=== PATIENT | male | born 1940 | race Hispanic/Latino ===

== ENCOUNTER 2016-03-27 11:32 | Inpatient (IN) | payer OTHER ==
[2016-03-27] MEDS ORDERED: SUBLIMAZE ONE (11:50)
[2016-03-27] MEDS ORDERED: NACL 0.9% 1000 ML 1,000 ML ONE (11:51)
[2016-03-27] MEDS ORDERED: NACL 0.9% 1000 ML 1,000 ML IV ONE ×2 (11:55→12:02)
[2016-03-27] MEDS ORDERED: SUBLIMAZE IV ONE ×2 (11:55→12:02)
[2016-03-27] MEDS ORDERED: ZOFRAN ONE (12:05)
--- NOTE | 2016-03-27 12:06 | Emergency Department Report ---
HPI - General Chief Complaint: Fall Time Seen by Provider: 03/27/16 11:36 - HPI HPI: This is a 75-year-old male who presents to the emergency department by EMS from work with the complaint of a fall and left hip pain. 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 He is unsure exactly how he fell or if he landed on his left side, but he complains of left hip pain, and presents with a severely externally rotated left lower extremity. The patient has a history of hypertension, hypothyroidism, CABG in 2006. His primary care doctor and orthopedist are in [place]. He did not take anything and was not given anything for symptoms prior to presentation. Once the patient fell, he was unable to ambulate. ED Past Medical Hx - Past Medical History Previous Medical History?: Yes Hx Hypertension: Yes Additional medical history: high cholesterol, hypothyroidism - Surgical History Past Surgical History?: Yes Hx Open Heart Surgery: Yes (CABG 2006) Additional Surgical History: Shoulder surgery 2006 - Social History Smoking Status: Former Smoker Substance Use Type: None - Medications Home Medications: Home Medications Medication Instructions Recorded Confirmed Last Taken Type Aspirin [Aspirin BABY CHEW TAB] 81 mg PO QDAY 03/27/16 03/27/16 Unknown History AtorvaSTATin [Lipitor] 20 mg PO QHS 03/27/16 03/27/16 03/26/16 History Gabapentin [Neurontin] 300 mg PO DAILY 03/27/16 03/27/16 Unknown History Levothyroxine [Synthroid] 125 mcg PO QAM 03/27/16 03/27/16 03/27/16 History Metoprolol Tartrate [Lopressor] 25 mg PO BID 03/27/16 03/27/16 Unknown History Multivit-Min/FA/Lycopen/Lutein 1 each PO DAILY 03/27/16 03/27/16 Unknown History [Centrum Silver Tablet] Omeprazole 20 mg PO DAILY 03/27/16 03/27/16 Unknown History ED Review of Systems ROS: Stated complaint: FELL/LEFT HIP INJURY Other details as noted in HPI Comment: All other systems reviewed and negative Constitutional: denies: chills, fever Eyes: denies: eye pain, eye discharge, vision change ENT: denies: ear pain, throat pain Respiratory: denies: cough, shortness of breath, wheezing Cardiovascular: denies: chest pain, palpitations Gastrointestinal: denies: abdominal pain, nausea, diarrhea Genitourinary: denies: urgency, dysuria Musculoskeletal: arthralgia. denies: back pain Skin: denies: rash, lesions Neurological: denies: headache, weakness, paresthesias Physical Exam - Physical Exam Vital Signs: Vital Signs 03/27/16 11:39 Pulse Rate 58 L Respiratory 16 Rate Blood Pressure 115/56 O2 Sat by Pulse 97 Oximetry Physical Exam: GENERAL: The patient is well-developed well-nourished. HEENT: Normocephalic. Atraumatic. Extraocular motions are intact. Patient has moist mucous membranes. Pupils equal reactive to light bilaterally. NECK: Supple. Trachea is midline. CHEST/LUNGS: Clear to auscultation. There is no respiratory distress noted. HEART/CARDIOVASCULAR: Regular. There is no tachycardia. There is no gallop rub or murmur. ABDOMEN: Abdomen is soft, nontender. Patient has normal bowel sounds. There is no abdominal distention. SKIN: There is no rash. There is no edema. There is no diaphoresis. NEURO: The patient is awake, alert, and oriented. The patient is cooperative. The patient has no focal neurologic deficits. The patient has normal speech. MUSCULOSKELETAL: Patient has tenderness to palpation to the left hip. The left lower extremity is externally rotated. Patient is neurovascularly intact with good cap refill and distal pedal pulses intact at +2 over 4. ED Course Vital Signs 03/27/16 11:39 Pulse Rate 58 L Respiratory 16 Rate Blood Pressure 115/56 O2 Sat by Pulse 97 Oximetry - Consultations Consultation #1: X-ray shows a proximal femur fracture just below the intertrochanteric line. Orthopedists have been paged. 03/27/16 12:05 Consultation #2: Was able to speak with Dr. Jauregui, the orthopedist environmental health and safety leader, who has the patient could be admitted to the hospitalist service but they will fix the patient's femur tomorrow. Patient is to be nothing by mouth after midnight. He asks for no Lovenox or heparin until that time. 03/27/16 12:24 ED Medical Decision Making - Radiology Data Radiology results: image reviewed interpreted by me: X-ray of the left hip shows a proximal left femur fracture just inferior to the intertrochanteric line. - Medical Decision Making 75-year-old male presents to the emergency department after a fall with complaint of left hip pain and what appears to be some deformity with extreme external rotation. X-ray shows a femoral fracture, transversely, just inferior to the intertrochanteric line of the hip. Orthopedist has been contacted and is aware and will fix the hip tomorrow. Patient to be admitted to the hospitalist service. Accepted for admission by the hospitalist, Dr. Can. - Differential Diagnosis hip fracture, contusion, muscle strain, tendinitis Critical Care Time: No Critical care attestation.: If time is entered above; I have spent that time in minutes in the direct care of this critically ill patient, excluding procedure time. ED Disposition Clinical Impression: Hip pain, left Left femoral shaft fracture Qualifiers: Encounter type: initial encounter Fracture type: closed Fracture morphology: transverse Fracture alignment: displaced Qualified Code(s): S72.322A - Displaced transverse fracture of shaft of left femur, initial encounter for closed fracture Fall Qualifiers: Encounter type: initial encounter Qualified Code(s): W19.XXXA - Unspecified fall, initial encounter Disposition: OP ADMITTED IP TO THIS HOSP Is pt being admited?: Yes Condition: Stable Time of Disposition: 12:26
[2016-03-27] MEDS ORDERED: ZOFRAN IV ONE (12:20)
[2016-03-27 12:40] LABS: Basophils % (Auto) 0.7 % (0.0-1.8); Eosinophils % (Auto) 2.5 % (0.0-4.3); Hematocrit 39.2 % (35.5-45.6); Hemoglobin 13.2 gm/dl (11.8-15.2); Mean Corpuscular HGB Conc 34 % (32-34); Mean Corpuscular Hemoglobin 31 pg (28-32); Mean Corpuscular Volume 91 fl (84-94); Platelet Count 216 K/mm3 (140-440); Red Blood Count 4.31 M/mm3 (3.65-5.03); Red Cell Distribution Width 13.6 % (13.2-15.2); White Blood Count 8.5 K/mm3 (4.5-11.0)
[2016-03-27 12:52] LABS: INR 1.04 (0.87-1.13)
[2016-03-27] MEDS ORDERED: MORPHINE IV ONE (12:54)
[2016-03-27 13:01] LABS: Anion Gap 19 mmol/L; BUN/Creatinine Ratio 17.77; Blood Urea Nitrogen 16 mg/dL (9-20); Calcium 8.6 mg/dL (8.4-10.2); Carbon Dioxide 21 mmol/L (22-30); Chloride 107.7 mmol/L (98-107); Glucose 141 mg/dL (75-100); Potassium 4.1 mmol/L (3.6-5.0); Sodium 144 mmol/L (137-145)
[2016-03-27] MEDS ORDERED: PERCOCET 5/325 PO PRN (13:18)
[2016-03-27] MEDS ORDERED: TYLENOL PO PRN (13:18)
[2016-03-27] MEDS ORDERED: NACL 0.45% 1000 ML 1,000 ML IV SCH (13:18)
[2016-03-27] MEDS ORDERED: DULCOLAX PR PRN (13:18)
--- NOTE | 2016-03-27 13:24 | History and Physical Report ---
History of Present Illness Date of examination: 03/27/16 Date of admission: 03/27/16 Chief complaint: Pain in the left hip after a fall today History of present illness: Mr. 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 He was unable to get up. He had pain in the left hip. He denies any shortness of breath, dizziness or chest pain. He was taken to the emergency room and x-rays were done which showed a left femoral fracture. Dr. Jauregui was consulted from the emergency room and requested that a patient admitted to the hospitalist service for surgical repair in the morning. Past History Past Medical History: CAD (CABG), hypertension, other (hypothyroid) Past Surgical History: No surgical history, CABG (double bypass; RT shoulder sx ) Social history: full code. denies: smoking (stopped years ago), prescription drug abuse, IV drug use Family history: hypertension Medications and Allergies Allergies Allergy/AdvReac Type Severity Reaction Status Date / Time No Known Allergies Allergy Unverified 03/27/16 11:44 Home Medications Medication Instructions Recorded Confirmed Last Taken Type Aspirin [Aspirin BABY CHEW TAB] 81 mg PO QDAY 03/27/16 03/27/16 Unknown History AtorvaSTATin [Lipitor] 20 mg PO QHS 03/27/16 03/27/16 03/26/16 History Gabapentin [Neurontin] 300 mg PO DAILY 03/27/16 03/27/16 Unknown History Levothyroxine [Synthroid] 125 mcg PO QAM 03/27/16 03/27/16 03/27/16 History Metoprolol Tartrate [Lopressor] 25 mg PO BID 03/27/16 03/27/16 Unknown History Multivit-Min/FA/Lycopen/Lutein 1 each PO DAILY 03/27/16 03/27/16 Unknown History [Centrum Silver Tablet] Omeprazole 20 mg PO DAILY 03/27/16 03/27/16 Unknown History Active Meds: Active Medications Acetaminophen (Tylenol) 650 mg PO Q4H PRN PRN Reason: Pain MILD(1-3)/Fever >100.5/PAUL Atorvastatin Calcium (Lipitor) 20 mg PO QHS [facility] Bisacodyl (Dulcolax) 10 mg [place] QDAY PRN PRN Reason: Constipation unrelieved by MOM Gabapentin (Neurontin) 300 mg PO DAILY [facility] Sodium Chloride (Nacl 0.45% 1000 Ml) 1,000 mls @ 75 mls/hr IV DIRECT IFRAH Levothyroxine Sodium (Synthroid) 125 mcg PO QAM [facility] Metoprolol Tartrate (Lopressor) 25 mg PO BID [facility] Miscellaneous Medication (Omeprazole [Omeprazole]) 20 mg PO DAILY [facility] Morphine Sulfate (Morphine) 2 mg IV Q4H PRN PRN Reason: Pain, Moderate (4-6) Oxycodone/Acetaminophen (Percocet 5/325) 1 tab PO Q6H PRN PRN Reason: Pain, Moderate (4-6) Review of Systems All systems: negative Constitutional: no weight loss, no weight gain, no fever, no chills Ears, nose, mouth and throat: no ear pain, no ear discharge, no tinnitis, no decreased hearing Cardiovascular: no chest pain, no orthopnea, no palpitations, no rapid/ irregular heart beat Respiratory: no cough, no cough with sputum, no excessive sputum, no hemoptysis Gastrointestinal: no abdominal pain, no nausea, no vomiting, no diarrhea Genitourinary Male: no urinary frequency, no urinary hesitancy, no nocturia Rectal: no pain, no incontinence, no bleeding Musculoskeletal: no neck stiffness, no neck pain, no shooting arm pain Integumentary: no rash, no pruritis, no redness Neurological: no head injury, no transient paralysis, no paralysis Psychiatric: no anxiety, no memory loss, no change in sleep habits Endocrine: no cold intolerance, no heat intolerance, no polyphagia, no excessive thirst Hematologic/Lymphatic: no easy bruising, no easy bleeding Allergic/Immunologic: no urticaria, no allergic rhinitis Exam - Constitutional Vitals: Temp Pulse Resp BP Pulse Ox 97.5 F L 55 L 18 109/45 93 03/27/16 12:50 03/27/16 13:01 03/27/16 13:09 03/27/16 13:01 03/27/16 13:01 General appearance: Present: no acute distress, well-nourished - EENT Eyes: Present: PERRL, EOM intact. Absent: scleral icterus, conjunctival injection ENT: hearing intact, clear oral mucosa, no oropharyngeal erythema, no poor dentition - Neck Neck: Present: supple, normal ROM. Absent: enlarged thyroid, masses or JVD - Respiratory Respiratory effort: normal Respiratory: negative: diminished, rales, rhonchi, wheezing - Cardiovascular Rhythm: regular Heart Sounds: Present: S1 & S2. Absent: gallop - Extremities Extremities: no ischemia, pulses intact, pulses symmetrical, abnormal (LT LE held in flexion at the hip) Peripheral Pulses: within normal limits - Abdominal General gastrointestinal: Present: soft, non-tender, non-distended, normal bowel sounds Male genitourinary: Present: deferred - Rectal Rectal Exam: deferred - Integumentary Integumentary: Present: clear - Musculoskeletal Musculoskeletal: strength equal bilaterally - Psychiatric Psychiatric: appropriate mood/affect, intact judgment & insight, cooperative - Neurologic Neurologic: CNII-XII intact, moves all extremities (limited in kari LT LE due to femoral fracture) Results - Labs CBC & Chem 7: 03/27/16 12:19 03/27/16 12:19 Labs: Abnormal lab results 03/27/16 03/27/16 Range/Units 12:19 12:19 Lymph % (Auto) 12.4 L (13.4-35.0) % [place] % (Auto) 8.5 H (0.0-7.3) % Lymph # 1.1 L (1.2-5.4) K/mm3 Seg Neutrophils % 75.9 H (40.0-70.0) % Chloride 107.7 H (98-107) mmol/L Carbon Dioxide 21 L (22-30) mmol/L Glucose 141 H (75-100) mg/dL xray hip- Pending result; unable to open to view image Assessment and Plan 1. Lt femoral fracture post accidental fall - will admit as an inpatient as more than 2 MN are required for treatment; remote telemetry; consult cardiology for clearance- he sees DR. Rider in [place] every 6 months; monitor H/H; IV morphine for pain and herbert percocet; bowel regime 2. CAD post remote CABG- hold ASA; cotn metoprolol and statin; no acute issues 3. Benign HTN- controlled; restart home meds 4.DVT prophylaxis- SCD; no lovenox or heparin in view of planed sx in the a.m
--- NOTE | 2016-03-27 13:42 | XRay Report ---
Single view chest: History: Preop. Findings: Borderline cardiomegaly. Trachea is midline. No consolidation, pneumothorax or pleural effusion. Impression: No acute cardiopulmonary findings.
--- NOTE | 2016-03-27 14:27 | Admit Criteria Form ---
Admission Criteria Documentation: MUSCULOSKELETAL DISEASE GRG Clinical Indications for Admission to Inpatient Care (Place 'X' for any and all applicable criteria): Hospital admission is needed for appropriate care of the patient because of ANY ONE of the following: [X]I. Fracture, dislocation, or other musculoskeletal injury requiring inpatient care(medical) as indicated by ANY ONE of the following(4)(5)(6)(7) [ ]a) Vertebral fracture requiring observation for instability or neurologic compromise (8) [ ]b) Compartment syndrome (proven or cannot be ruled out during observation level of care) (9) [ ]c) Limb-threatening injury [X]d) Major injury requiring inpatient stabilization such as traction initiation or external fixation before internal fixation or closure of complex or open fracture [X]e) Major injury requiring inpatient treatment after emergency or observation level care (as appropriate) [X]f) Severe pain requiring acute inpatient management [ ]II. Newly diagnosed or suspected bone, joint, or orthopedic device infection (e.g., osteomyelitis, septic arthritis) needing ANY ONE of the following(1)(2)(3) [ ]a) IV antibiotics that cannot be initiated in other than inpatient setting (e.g., patient too unstable or home infusion not available) [ ]b) Device removal or replacement [ ]c) Bone or soft tissue debridement [ ]d) Joint drainage (drain placement or repetitive aspirations) [ ]III. Severe rheumatologic disease (e.g., systemic lupus erythematosus, rheumatoid arthritis) with complications or comorbidities (Also use Optimal Recovery Care Criteria or General Recovery Criteria as appropriate on the basis of predominant condition), including ANY ONE of the following(10 )(11)(12)(13) [ ]a) Severe infection (e.g., DEVELOPMENT EXPERT infection, sepsis) (14) [ ]b) Respiratory complications, including ANY ONE of the following: [ ]i) Pleural effusion with respiratory compromise [ ]ii) Pulmonary hypertension with congestive failure [ ]iii) Respiratory failure [ ]iv) Pulmonary hemorrhage (15) [ ]c) Hematologic disease, including ANY ONE of the following: [ ]i) Coagulopathy with bleeding [ ]ii) Thrombosis with hypercoagulable state [ ]iii) Thrombotic thrombocytopenic purpura [ ]d) Cerebritis with seizures, psychosis, or other severe abnormalities [ ]e) Vertebral destruction with monitoring needed for cervical myelopathy& possible respiratory compromise [ ]f) Exacerbation that requires inpatient treatment (e.g., intravenous immunosuppression) (16) [ ]g) Acute renal failure [ ]IV. Severe vasculitis with complications or comorbidities (Also use Optimal Recovery Care Criteria or General Recovery Criteria as appropriate on the basis of predominant condition), including ANY ONE of the following(11)(12)(17)(18)(19)(20) [ ]a) DEVELOPMENT EXPERT vasculitis with seizures, psychosis, or other severe abnormalities (22) [ ]b) Renal failure (16) [ ]c) Pulmonary hemorrhage (15) [ ]d) Cerebral infarction [ ]e) Gastrointestinal ischemia [ ]f) Gangrene or threatened amputation [ ]g) Exacerbation that requires inpatient treatment (e.g., intravenous immunosuppression) (19)(21) [ ]V. Severe myopathy as indicated by ANY ONE of the following (28)(29) [ ]a) New onset of airway compromise or inability to swallow [ ]b) Respiratory deterioration with observation needed for impending respiratory failure [ ]c) Exacerbation that requires inpatient treatment (e.g., intravenous immunosuppression) [ ]. Severe gout (crystal arthropathy) as indicated by ANY ONE of the following (23)(24) [ ]a) Severe pain requiring acute inpatient management [ ]b) Exacerbation that requires inpatient treatment (e.g., intravenous treatment) [ ]VII.Rhabdomyolysis and ANY ONE of the following (25)(26)(27) [ ]a) Acute renal failure [ ]b) Need for intravenous hydration after emergency or observation level care (as appropriate) [ ]c) Inability to maintain oral hydration [ ]d) Change in mental status [ ]e) Electrolyte abnormality that remains after emergency or observation level care (as appropriate) [ ]VIII Post amputation complication, as indicated by ANY ONE of the following [ ]a) Infection [ ]b) Dehiscence [ ]c) Myodesis failure [ ]IX. Severe pain requiring acute inpatient management as indicated by ALL of the following (30)(31)(32) [ ]a) Continuous or frequent (e.g., every 2 to 4 hrs) parenteral analgesics required [A] [ ]b) Rapid improvement expected from treatment or acute intervention ( e.g., surgery, anesthesia procedure[B] [ ]X. Musculoskeletal Disease and ALL of the following: [ ]a) Symptom or finding for which emergency and observation care have failed or are not considered appropriate (Use General Criteria: Observation Care as appropriate) [ ]b) Presence of ANY ONE of the following [ ]i) A General Admission Criteria [ ]ii) A Pediatric General Admission Criteria The original [facility] content created by [facility] has been revised. The portions of the content which have been revised are identified through the use of italic text or in bold, and [facility] has neither reviewed nor approved the modified material. All other unmodified content is copyright [facility]. Please see references footnoted in the original [facility] edition 2016 Admission Criteria Met: Yes
--- NOTE | 2016-03-27 15:31 | Consultation ---
Addendum entered and electronically signed by CLAUDE OCONNOR MD 17:58: Asymptomatic from a cardiac standpoint. 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 Will F/U Echo. Discussed with the patient. Original Note: History of Present Illness Consult date: 03/27/16 Requesting physician: KARY CAN Consult reason: pre op evaluation History of present illness: The patient is a 75 year old male with a history of CAD s/p CABG (2006), hyperlipidemia who presented following a fall at work this morning. 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 X-ray revealed a proximal femur fracture. Dr. Jauregui was consulted and is planning on surgical repair tomorrow. Cardiology has been consulted for a pre-operative evaluation. The patient denies any recent chest pain, palpitations or shortness of breath. Past History Past Medical History: CAD, hyperlipidemia, hypothyroidism, other (hx. of prostate CA) Past Surgical History: CABG (double bypass), Other (RT shoulder surgery) Social history: full code. denies: smoking (stopped 10 years ago), alcohol abuse, prescription drug abuse, IV drug use Family history: hypertension Medications and Allergies Allergies Allergy/AdvReac Type Severity Reaction Status Date / Time No Known Allergies Allergy Unverified 03/27/16 11:44 Home Medications Medication Instructions Recorded Confirmed Last Taken Type Aspirin [Aspirin BABY CHEW TAB] 81 mg PO QDAY 03/27/16 03/27/16 Unknown History AtorvaSTATin [Lipitor] 20 mg PO QHS 03/27/16 03/27/16 03/26/16 History Gabapentin [Neurontin] 300 mg PO DAILY 03/27/16 03/27/16 Unknown History Levothyroxine [Synthroid] 125 mcg PO QAM 03/27/16 03/27/16 03/27/16 History Metoprolol Tartrate [Lopressor] 25 mg PO BID 03/27/16 03/27/16 Unknown History Multivit-Min/FA/Lycopen/Lutein 1 each PO DAILY 03/27/16 03/27/16 Unknown History [Centrum Silver Tablet] Omeprazole 20 mg PO DAILY 03/27/16 03/27/16 Unknown History Active Meds: Active Medications Acetaminophen (Tylenol) 650 mg PO Q4H PRN PRN Reason: Pain MILD(1-3)/Fever >100.5/PAUL Atorvastatin Calcium (Lipitor) 20 mg PO QHS [facility] Bisacodyl (Dulcolax) 10 mg [place] QDAY PRN PRN Reason: Constipation unrelieved by MOM Gabapentin (Neurontin) 300 mg PO DAILY [facility] Sodium Chloride (Nacl 0.45% 1000 Ml) 1,000 mls @ 75 mls/hr IV DIRECT [facility] Levothyroxine Sodium (Synthroid) 125 mcg PO QAM [facility] Metoprolol Tartrate (Lopressor) 25 mg PO BID [facility] Morphine Sulfate (Morphine) 2 mg IV Q4H PRN PRN Reason: Pain, Moderate (4-6) Oxycodone/Acetaminophen (Percocet 5/325) 1 tab PO Q6H PRN PRN Reason: Pain, Moderate (4-6) Pantoprazole Sodium (Protonix) 20 mg PO QDAY [facility] Review of Systems Constitutional: no fever, no chills Ears, nose, mouth and throat: no nasal congestion, no nasal discharge, no sinus pressure Cardiovascular: no chest pain, no palpitations, no shortness of breath, no dyspnea on exertion Respiratory: no cough, no shortness of breath, no dyspnea on exertion, no congestion, no wheezing Gastrointestinal: no abdominal pain, no nausea, no vomiting, no diarrhea Genitourinary Male: no dysuria, no hematuria Musculoskeletal: no neck stiffness, no neck pain, no myalgias Integumentary: no rash, no pruritis Neurological: no weakness, no parathesias, no numbness, no headaches Endocrine: no cold intolerance, no heat intolerance Hematologic/Lymphatic: no easy bruising, no easy bleeding Allergic/Immunologic: no urticaria, no wheezing Physical Examination Last Vital Signs Temp 97.6 F 03/27/16 15:41 Pulse 60 03/27/16 15:41 Resp 18 03/27/16 15:41 BP 149/65 03/27/16 15:41 Pulse Ox 97 03/27/16 15:41 General appearance: no acute distress HEENT: Positive: Normocephaly, Mucus Membranes Moist Neck: Positive: neck supple, trachea midline Cardiac: Positive: Reg Rate and Rhythm, S1/S2 Lungs: Positive: clear to auscultation Neuro: Positive: Grossly Intact Abdomen: Positive: Soft, Active Bowel Sounds. Negative: Tender Skin: Positive: Clear. Negative: Rash Extremities: Absent: edema Results 03/27/16 12:19 03/27/16 12:19 - Imaging and Cardiology Echo: pending EKG: image reviewed EKG interpretations - Telemetry EKG Rhythm: Sinus Rhythm - EKG Sinus rhythms and dysrhythmias: sinus rhythm AV and intraventricular conduction: right bundle branch block Myocardial infarction: inferior IN (old age inde Assessment and Plan Pre-op cardiac evaluation no recent cardiac symptoms await echo findings Left femur fracture awaiting surgical repair, per ortho CAD s/p CABG (2006) continue statin, metoprolol resume ASA when okay with surgery Hyperlipidemia Await echo findings. Further recommendations to follow. The patient has been seen in conjunction with Dr. Iyer who agrees with the assessment and plan of care. Thank you Dr. Can for allowing us to participate in the care of this patient.
--- NOTE | 2016-03-27 16:13 | Anesthesia Consultation ---
Anesthesia Consult and Med Hx - Airway Anesthetic Teeth Evaluation: Good, Caps ROM Head & Neck: Adequate Mental/Hyoid Distance: Adequate Mallampati Class: Class III Intubation Access Assessment: Possibly Difficult - Pulmonary Exam CTA: Yes - Cardiac Exam Cardiac Exam: RRR - Pre-Operative Health Status ASA Pre-Surgery Classification: ASA3 Proposed Anesthetic Plan: General - Pulmonary Hx Smoking: Yes (past smoker quit 2006) - Cardiovascular System Hx Hypertension: Yes Hx Coronary Artery Disease: Yes (CABG 2006) Hx Cardia Arrhythmia: (R BBB) - Gastrointestinal Hx Gastroesophageal Reflux Disease: Yes (controlled on meds) - Additional Comments Anesthesia Medical History Comments: Pt to be seen by cardiology this afternoon. No problems with chest pain after CABG in 2006. Hx HTN, Hyperliidemia , and reflux. Cardiology to see pt this afternoon.
[2016-03-27] MEDS: MORPHINE IV PRN (18:45)
--- NOTE | 2016-03-27 18:53 | Echocardiography Report ---
Transthoracic Echocardiogram Indication: Pre-op BP: 109/45 Conclusions *The left ventricular chamber size is mildly dilated. *Global left ventricular systolic function is normal. *The estimated ejection fraction is 55-60%. *Abnormal left ventricular diastolic filling is observed, consistent with impaired relaxation. *The left atrium is mildly dilated. *The right ventricular global systolic function is normal. *The interatrial septum appears normal. *Mild aortic leaflet calcification is visualized. *There is trace of aortic regurgitation. *There is no evidence of aortic stenosis. *There is mild to moderate mitral regurgitation. *There is mild tricuspid regurgitation. *The right ventricular systolic pressure is calculated at 26 mmHg. *There is no pericardial effusion. *There is mild dilatation of the ascending aorta. Findings Left Ventricle: The left ventricular chamber size is mildly dilated. Global left ventricular wall motion and contractility are within normal limits. Global left ventricular systolic function is normal. The estimated ejection fraction is 55-60%. Abnormal left ventricular diastolic filling is observed, consistent with impaired relaxation. Left Atrium: The left atrium is mildly dilated. Right Ventricle: The right ventricular cavity size is normal. The right ventricular global systolic function is normal. Right Atrium: The right atrium appears normal. The interatrial septum appears normal. Aortic Valve: The aortic valve leaflets are mildly thickened. Mild aortic leaflet calcification is visualized. There is trace of aortic regurgitation. There is no evidence of aortic stenosis. The mean gradient of the aortic valve is 9 mmHg. Mitral Valve: The mitral valve leaflets are mildly thickened. There is mild to moderate mitral regurgitation. There is no evidence of mitral stenosis. Tricuspid Valve: The tricuspid valve leaflets are normal. The tricuspid valve leaflets are mildly thickened. There is mild tricuspid regurgitation. The right ventricular systolic pressure is calculated at 26 mmHg. There is no tricuspid stenosis. Pulmonic Valve: The pulmonic valve appears normal. There is trace pulmonic regurgitation. There is no pulmonic stenosis. Pericardium: There is no pericardial effusion. Aorta: There is mild dilatation of the ascending aorta. There is no dilatation of the aortic arch. Venous: The inferior vena cava appears normal in size. Measurements Chambers MM Name Value Normal Range Ao root diameter (MM) 3.8 cm (2 - 3.7) LA dimension (AP) MM 4.2 cm (1.9 - 4) LA:Ao ratio (MM) 1.11 ratio - AV cusp separation (MM) 1.4 cm (1.5 - 2.6) Chambers 2D Name Value Normal Range RVIDd (AP) 2D 3.38 cm (0.9 - 2.6) IVSd (2D) 1.26 cm (0.6 - 1.1) LVPWd (2D) 1.23 cm (0.6 - 1.1) IVS:LVPW ratio (2D) 1.02 ratio - LVIDd (2D) 5.12 cm (3.7 - 5.6) LVIDs (2D) 3.23 cm (2 - 3.8) LV FS (Teichholz) (2D) 36.9 % - LV FS (cube) (2D) 36.9 % - EF Teichholz (2D) 66.5 % - Ao root diameter (2D) 3.8 cm (2 - 3.7) LA dimension (AP) 2D 4.9 cm (1.9 - 4) LA:Ao ratio (2D) 1.29 ratio - Volumes/Mass Name Value Normal Range LA ESV SP 4CH (MOD) 80 ml - LA ESV SP 2CH (MOD) 70 ml - LA ESV BP (MOD) 77 ml - LA ESV BP (MOD) index 37.4 ml/m2 - Diastolic/Systolic Function Name Value Normal Range MV E-wave Vmax 0.66 m/sec - MV deceleration time 180 msec - MV A-wave Vmax 0.87 m/sec - MV E:A ratio 0.8 ratio - LV septal e' Vmax 0.06 m/sec - LV lateral e' Vmax 0.14 m/sec - LV E:e' septal ratio 10.7 ratio - LV E:e' lateral ratio 4.6 ratio - Aortic Valve Name Value Normal Range AV VTI 43.3 cm - AV mean gradient 9 mmHg - LVOT diameter 2.2 cm - LVOT VTI 25.2 cm - LVOT mean gradient 3 mmHg - SV LVOT 96 ml - EMILIANO (continuity VTI) 2.21 cm2 - Mitral Valve Name Value Normal Range MV PHT 49 msec - MR Vmax 5.9 m/sec - MR VTI 167 cm - MVA (PHT) 4.49 cm2 - Tricuspid Valve Name Value Normal Range TR Vmax 2.42 m/sec - TR peak gradient 23 mmHg - RAP 3 mmHg - RVSP 26 mmHg - Pulmonic Valve/Qp:Qs Name Value Normal Range PV Vmax 1.26 m/sec - PV peak gradient 6 mmHg - MA end-diastolic Vmax 0.79 m/sec - PV acceleration time 169 msec -
[2016-03-27] MEDS: LOPRESSOR PO SCH (22:37)
[2016-03-28] MEDS ORDERED: PEPCID PO NR (00:01)
[2016-03-28] MEDS: MORPHINE IV PRN ×3 (01:04→08:30)
[2016-03-28] MEDS: LACTATED RINGERS 1,000 ML IV SCH ×2 (04:52→11:52)
--- NOTE | 2016-03-28 07:55 | Progress Note ---
Assessment and Plan Assessment and plan: 75-year-old man with a past medical history of hypertension and CAD status post CABG in 2006 who presents status post fall with left hip fracture 1. Lt femoral fracture post accidental fall - Or today hopefully, patient's has no cardiac symptoms, echocardiogram reviewed shows preserved systolic function, patient is intermediate risk for intermediate risk procedure. Patient is medically optimized for planned orthopedic surgeries to his hip 2. CAD post remote CABG-cardiology input appreciated, continue beta desmond and statin, restart aspirin as soon as okayed by surgery cardiology input appreciated 3. Benign HTN- controlled; continue current meds 4.DVT prophylaxis- SCD; no lovenox or heparin in view of planed sx in the a.m History Interval history: Continues to have left hip pain, has been in bed. No fevers overnight, no events overnight Hospitalist Physical - Physical exam Narrative exam: General: Patient appears well in no distress HEENT: MMM, EOMI cardiac: S1-S2 heard lungs: clear to auscultation, abdomen: soft, nontender, nondistended bowel sounds positive extremities: Left lower extremity shortened and externally rotated Skin: no rash or lesion Neuro: no focal deficit Psych: appropriate behavior and mood, cognition intact - Constitutional Vitals: Temp Pulse Resp BP Pulse Ox 98.5 F 67 20 125/58 98 03/28/16 00:29 03/28/16 00:29 03/28/16 00:29 03/28/16 00:29 03/28/16 00:29 General appearance: Present: no acute distress Results - Labs CBC & Chem 7: 03/27/16 12:19 03/27/16 12:19 Labs: Laboratory Last Values WBC 8.5 K/mm3 (4.5-11.0) 03/27/16 12:19 RBC 4.31 M/mm3 (3.65-5.03) 03/27/16 12:19 Hgb 13.2 gm/dl (11.8-15.2) 03/27/16 12:19 Hct 39.2 % (35.5-45.6) 03/27/16 12:19 MCV 91 fl (84-94) 03/27/16 12:19 MCH 31 pg (28-32) 03/27/16 12:19 MCHC 34 % (32-34) 03/27/16 12:19 RDW 13.6 % (13.2-15.2) 03/27/16 12:19 Plt Count 216 K/mm3 (140-440) 03/27/16 12:19 Lymph % (Auto) 12.4 % (13.4-35.0) L 03/27/16 12:19 [place] % (Auto) 8.5 % (0.0-7.3) H 03/27/16 12:19 Eos % (Auto) 2.5 % (0.0-4.3) 03/27/16 12:19 Baso % (Auto) 0.7 % (0.0-1.8) 03/27/16 12:19 Lymph # 1.1 K/mm3 (1.2-5.4) L 03/27/16 12:19 [place] # 0.7 K/mm3 (0.0-0.8) 03/27/16 12:19 Eos # 0.2 K/mm3 (0.0-0.4) 03/27/16 12:19 Baso # 0.1 K/mm3 (0.0-0.1) 03/27/16 12:19 Seg Neutrophils % 75.9 % (40.0-70.0) H 03/27/16 12:19 Seg Neutrophils # 6.5 K/mm3 (1.8-7.7) 03/27/16 12:19 PT 13.5 Sec. (12.2-14.9) 03/27/16 12:19 INR 1.04 (0.87-1.13) 03/27/16 12:19 APTT 26.0 Sec. (24.2-36.6) 03/27/16 12:19 Sodium 144 mmol/L (137-145) 03/27/16 12:19 Potassium 4.1 mmol/L (3.6-5.0) 03/27/16 12:19 Chloride 107.7 mmol/L (98-107) H 03/27/16 12:19 Carbon Dioxide 21 mmol/L (22-30) L 03/27/16 12:19 Anion Gap 19 mmol/L 03/27/16 12:19 BUN 16 mg/dL (9-20) 03/27/16 12:19 Creatinine 0.9 mg/dL (0.8-1.5) 03/27/16 12:19 Estimated GFR > 60 ml/min 03/27/16 12:19 BUN/Creatinine Ratio 17.77 % 03/27/16 12:19 Glucose 141 mg/dL (75-100) H 03/27/16 12:19 Calcium 8.6 mg/dL (8.4-10.2) 03/27/16 12:19 TSH 1.110 mlU/mL (0.270-4.200) 03/27/16 12:19
--- NOTE | 2016-03-28 08:26 | XRay Report ---
LEFT HIP, 2 VIEWS: HISTORY: Hip pain. FINDINGS: Limited exam by poor patient cooperation. There is a transverse displaced fracture just below the trochanters in the proximal left femur. Medial displacement measures 2-3 cm. The left femoral head is well-seated within the left acetabulum. No additional fractures are appreciated. IMPRESSION: Displaced subtrochanteric fracture of the left femur.
--- NOTE | 2016-03-28 09:41 | Progress Note ---
Addendum entered and electronically signed by CLAUDE OCONNOR MD 10:57: Echo also reveals mild to moderate MR - most likely degenerative. Original Note: Assessment and Plan Pre-op cardiac evaluation no recent cardiac symptoms Echo: EF 55-60%, impaired relaxation Left femur fracture awaiting surgical repair, per ortho CAD s/p CABG (2006) continue statin, metoprolol resume ASA when okay with surgery Hyperlipidemia The patient is stable from a cardiac standpoint to proceed with surgery as planned. Will follow. The patient has been seen in conjunction with Dr. Iyer who agrees with the assessment and plan of care. Subjective Date of service: 03/28/16 Principal diagnosis: pre-op cardiac evaluation Interval history: The patient is resting in bed. Awaiting surgery this am. Objective Last Vital Signs Temp 98.4 F 03/28/16 07:30 Pulse 59 L 03/28/16 07:30 Resp 20 03/28/16 07:30 BP 102/53 03/28/16 07:30 Pulse Ox 90 03/28/16 07:30 - Physical Examination General: No Apparent Distress HEENT: Positive: Normocephaly, Mucus Membranes Moist Neck: Positive: neck supple, trachea midline Cardiac: Positive: Reg Rate and Rhythm, S1/S2 Lungs: Positive: clear to auscultation Neuro: Positive: Grossly Intact Abdomen: Positive: Soft, Active Bowel Sounds. Negative: Tender Skin: Positive: Clear. Negative: Rash Extremities: Absent: edema - Imaging and Cardiology EKG: image reviewed Echo: report reviewed (03/2016: EF 55-60%, impaired relaxation ) - EKG Sinus rhythms and dysrhythmias: sinus rhythm AV and intraventricular conduction: right bundle branch block Myocardial infarction: inferior HI (old age inde
[2016-03-28] MEDS: SYNTHROID PO SCH (10:00)
[2016-03-28] MEDS ORDERED: NON-FORMULARY (Omeprazole [Omeprazole] 20 MG) PO SCH (10:00)
[2016-03-28] MEDS: PROTONIX PO SCH (10:00)
[2016-03-28] MEDS: LOPRESSOR PO SCH ×2 (11:52→22:39)
[2016-03-28] MEDS: NEURONTIN PO SCH (11:54)
--- NOTE | 2016-03-28 12:07 | Anesthesia Day of Surgery ---
Anesthesia Day of Surgery - Day of Surgery Patient Examined: Yes Patient H&P Reviewed: Yes Patient is NPO: Yes Beta Blockers: Yes Cardiac Clearance: Yes
[2016-03-28] MEDS ORDERED: DIPRIVAN 10 MG/ML IV ONE ×3 (12:17→13:34)
[2016-03-28] MEDS ORDERED: XYLOCAINE MPF 2% ONE (12:18)
--- NOTE | 2016-03-28 12:19 | Procedure Note ---
Date of procedure: 03/28/16 Pre-op diagnosis: subtrochanteric fracture left femur Post-op diagnosis: same Procedure: ORIF left femur; TFN Anesthesia: GETA Surgeon: SUKHI ARCHER Ophthalmic Medical Technician: AVINASH ZARAGOZA Estimated blood loss: 50-100ml Pathology: none Disposition: floor
[2016-03-28] MEDS ORDERED: MILK OF MAGNESIA PO PRN (12:22)
[2016-03-28] MEDS ORDERED: PHENERGAN PR PRN (12:22)
[2016-03-28] MEDS ORDERED: AMBIEN PO PRN (12:22)
[2016-03-28] MEDS ORDERED: NARCAN 0.4 MG/1 ML IV PRN (12:22)
[2016-03-28] MEDS ORDERED: ZOFRAN IV PRN (12:22)
[2016-03-28] MEDS ORDERED: SODIUM CHLORIDE FLUSH SYRINGE 10 ML IV PRN (12:22)
[2016-03-28] MEDS ORDERED: NORCO 5/325 PO PRN (12:22)
[2016-03-28] MEDS ORDERED: ePHEDrine SULFATE ONE ×2 (12:57→13:20)
[2016-03-28] MEDS ORDERED: MORPHINE PCA 30MG/30ML IV SCH (13:00)
[2016-03-28] MEDS ORDERED: ANCEF/STERILE WATER 2 GM/20 ML IV NR (13:00)
[2016-03-28] MEDS ORDERED: D5NS 1,000 ML IV SCH (13:00)
[2016-03-28] MEDS ORDERED: VERSED ONE ×2 (13:08→13:33)
[2016-03-28] MEDS ORDERED: NEO SYNEPHRINE/NS Syringe(OR USE) IV ONE (13:42)
[2016-03-28] MEDS ORDERED: LACTATED RINGERS 1,000 ML ONE (13:43)
[2016-03-28] MEDS ORDERED: NACL 0.9% IR ONE (13:46)
[2016-03-28] MEDS ORDERED: NEOSPORIN GU IR ONE (13:46)
--- NOTE | 2016-03-28 15:14 | XRay Report ---
LEFT HIP, 2 VIEWS History: Pain. Findings: AP and lateral fluoroscopic images were obtained prior to surgery. The subtrochanteric fracture is unchanged in position alignment since yesterday's exam. There is normal articulation at the left hip. Impression: Proximal left femur fracture, unchanged.
--- NOTE | 2016-03-28 15:15 | XRay Report ---
LEFT FEMUR, ONE VIEW History: Pain Findings: AP fluoroscopic images of the left femur obtained after surgery. The images demonstrate internal fixation of the proximal left femur with intramedullary clement and femoral neck screw. Alignment is anatomic. Impression: Open reduction and internal fixation of the proximal left femur fracture.
[2016-03-28] MEDS: ASPIRIN PO SCH (22:40)
[2016-03-29] MEDS: ASPIRIN PO SCH ×3 (00:53→22:00)
[2016-03-29] MEDS: LOPRESSOR PO SCH ×3 (00:54→22:51)
[2016-03-29] MEDS: OxyCONTIN PO SCH ×4 (06:51→22:00)
--- NOTE | 2016-03-29 11:32 | Operative Report ---
PREOPERATIVE DIAGNOSIS: Subtrochanteric fracture, left hip. POSTOPERATIVE DIAGNOSIS: Subtrochanteric fracture, left hip. PROCEDURE: Open reduction internal fixation, left hip subtrochanteric fracture with TFN nail. SURGEON: Dr. Francis Roque. AGRICULTURE INTERNSHIP: Nidia Lay RN. ANESTHESIA: Spinal, general. COMPLICATIONS: None. FINDINGS: Severe disk fracture, subtrochanteric displaced. PROCEDURE IN DETAIL: Once the patient was in the surgical room, the patient was transferred to the [place] fracture table. Prepping and draping of the patient was done in the usual fashion. The patient was placed on the table. Manipulation of the leg was carried out. Fluoroscopy was used to see the fracture. Once this was done, the procedure was carried out by making an incision, which was done in line with the trochanter on the left hip. Using about 10 cm in length, the incision was carried out through the subcutaneous tissues and fascia to allow for palpation of the posterior superior aspect of the greater trochanter. Once this was carried out, fluoroscopy was used, an awl was inserted and the point on the trochanter was isolated and determined. Once this was carried out, the guidewire was drilled through this area entering the intertrochanteric area of the femur. The guidewire was then enlarged with a drill. This allowed for the insertion following manipulation tool. Tool was inserted to allow full correction of the flexion of the fracture. The flexion was corrected and the guidewire was deployed into the medullary canal of the femur. The guidewire was placed all the way to the metaphyseal area of the femur over the knee. The wire was measured. Once this was done, using the guidewire reaming of the medullary canal of the femur was carried out to 12.5 mm. The nail was then selected. The nail was 400 mm in length. The nail was inserted using a mallet and carrier driver. The guidewire was inserted all the way down to the metaphyseal aspect of the knee. X-rays were checked and manipulation of the fracture was carried out to allow for position of the guidewire in such a way that the cross pin will go into the femoral head. Once this was done AP and lateral fluoroscopy, the drill holes were carried out into the naked area. This area was drilled, measured, the cross pin was inserted including a mallet and a carrier driver. Once the cross pin was in position, locking screw was advanced and locked it in place. Once this was done, manipulation of the leg demonstrated that the leg was stable, the fracture was in good position. The procedure was then terminated. The wound was irrigated extensively, following that, the wound was closed using #1 Vicryl, 2-0 Vicryl, and skin clips, the procedure was carried out without any problems or complications. Once this was done, the patient was awakened and taken to recovery room doing well. JOB# [id number] BRUCE/MARINO COX
[2016-03-29] MEDS: SYNTHROID PO SCH (12:00)
--- NOTE | 2016-03-29 14:16 | Progress Note ---
Assessment and Plan - Patient Problems (1) Hip pain, left Current Visit: Yes Status: Acute (2) Left femoral shaft fracture Current Visit: Yes Status: Acute Qualifiers: Encounter type: initial encounter Fracture type: closed Fracture morphology: transverse Fracture alignment: displaced Qualified Code(s): S72.322A - Displaced transverse fracture of shaft of left femur, initial encounter for closed fracture Plan to address problem: Continue with progressive ambulation, protected weightbearing, DVT prophylaxis. Pain is well-controlled. Patient may be discharged to home with home health care, physical therapy program/[facility] per medicine, followup in the office on discharge. Subjective Date of service: 03/29/16 Principal diagnosis: pre-op cardiac evaluation Interval history: Postop, status post hip fracture fixation. Objective Vital signs: Vital Signs - 12hr 03/29/16 08:00 Temperature 98.2 F Pulse Rate [ 66 From Monitor] Respiratory 18 Rate Blood Pressure 112/64 [Left Arm] O2 Sat by Pulse 94 Oximetry Narrative Exam: Doing well postop, out of bed. - Labs CBC & BMP: 03/27/16 12:19 03/27/16 12:19
[2016-03-29] MEDS: PROTONIX PO SCH (16:00)
[2016-03-29] MEDS: NEURONTIN PO SCH (16:00)
--- NOTE | 2016-03-29 17:36 | Progress Note ---
Assessment and Plan Disposition Plan: plan to be discharged to rehabilitation possibly Thursday. Total Time Spent with Patient (Minutes): 21 - Patient Problems (1) Fall Current Visit: Yes Status: Acute Qualifiers: Encounter type: initial encounter Qualified Code(s): W19.XXXA - Unspecified fall, initial encounter (2) Hip pain, left Current Visit: Yes Status: Acute Plan to address problem: Negative femoral neck fracture status post surgery stable. (3) Coronary artery disease Current Visit: Yes Status: Acute Plan to address problem: She remains chest pain-free no angina stable. (4) Left femoral shaft fracture Current Visit: Yes Status: Acute Qualifiers: Encounter type: initial encounter Fracture type: closed Fracture morphology: transverse Fracture alignment: displaced Qualified Code(s): S72.322A - Displaced transverse fracture of shaft of left femur, initial encounter for closed fracture Plan to address problem: Doing well with fracture limited pain up having increase range of motion. Limited pain. (5) Hypertension Current Visit: Yes Status: Acute Qualifiers: Hypertension type: essential hypertension Qualified Code(s): I10 - Essential (primary) hypertension Plan to address problem: Present has optimal control blood pressure continue metoprolol and current medical management. History Interval history: Mr. Nesbitt is at bedside with family. Good spirits was up walking down the thomas limited pain tolerated procedure well. Hospitalist Physical - Constitutional Vitals: Temp Pulse Resp BP Pulse Ox 98.2 F 66 18 112/64 94 03/29/16 08:00 03/29/16 08:00 03/29/16 08:00 03/29/16 08:00 03/29/16 08:00 General appearance: Present: no acute distress - EENT Eyes: Present: PERRL, EOM intact ENT: hearing intact, clear oral mucosa, dentition normal - Neck Neck: Present: supple, normal ROM - Respiratory Respiratory effort: normal Respiratory: bilateral: CTA - Cardiovascular Rhythm: regular Heart Sounds: Present: S1 & S2 - Extremities Extremities: no ischemia, pulses intact Extremity abnormal: other (physical scar bandaged) - Abdominal General gastrointestinal: soft, non-tender, non-distended - Integumentary Integumentary: Present: clear, warm, dry - Psychiatric Psychiatric: appropriate mood/affect, cooperative - Neurologic Neurologic: CNII-XII intact Results - Labs CBC & Chem 7: 03/27/16 12:19 03/27/16 12:19 Labs: Laboratory Last Values WBC 8.5 K/mm3 (4.5-11.0) 03/27/16 12:19 RBC 4.31 M/mm3 (3.65-5.03) 03/27/16 12:19 Hgb 13.2 gm/dl (11.8-15.2) 03/27/16 12:19 Hct 39.2 % (35.5-45.6) 03/27/16 12:19 MCV 91 fl (84-94) 03/27/16 12:19 MCH 31 pg (28-32) 03/27/16 12:19 MCHC 34 % (32-34) 03/27/16 12:19 RDW 13.6 % (13.2-15.2) 03/27/16 12:19 Plt Count 216 K/mm3 (140-440) 03/27/16 12:19 Lymph % (Auto) 12.4 % (13.4-35.0) L 03/27/16 12:19 [place] % (Auto) 8.5 % (0.0-7.3) H 03/27/16 12:19 Eos % (Auto) 2.5 % (0.0-4.3) 03/27/16 12:19 Baso % (Auto) 0.7 % (0.0-1.8) 03/27/16 12:19 Lymph # 1.1 K/mm3 (1.2-5.4) L 03/27/16 12:19 [place] # 0.7 K/mm3 (0.0-0.8) 03/27/16 12:19 Eos # 0.2 K/mm3 (0.0-0.4) 03/27/16 12:19 Baso # 0.1 K/mm3 (0.0-0.1) 03/27/16 12:19 Seg Neutrophils % 75.9 % (40.0-70.0) H 03/27/16 12:19 Seg Neutrophils # 6.5 K/mm3 (1.8-7.7) 03/27/16 12:19 PT 13.5 Sec. (12.2-14.9) 03/27/16 12:19 INR 1.04 (0.87-1.13) 03/27/16 12:19 APTT 26.0 Sec. (24.2-36.6) 03/27/16 12:19 Sodium 144 mmol/L (137-145) 03/27/16 12:19 Potassium 4.1 mmol/L (3.6-5.0) 03/27/16 12:19 Chloride 107.7 mmol/L (98-107) H 03/27/16 12:19 Carbon Dioxide 21 mmol/L (22-30) L 03/27/16 12:19 Anion Gap 19 mmol/L 03/27/16 12:19 BUN 16 mg/dL (9-20) 03/27/16 12:19 Creatinine 0.9 mg/dL (0.8-1.5) 03/27/16 12:19 Estimated GFR > 60 ml/min 03/27/16 12:19 BUN/Creatinine Ratio 17.77 % 03/27/16 12:19 Glucose 141 mg/dL (75-100) H 03/27/16 12:19 Calcium 8.6 mg/dL (8.4-10.2) 03/27/16 12:19 TSH 1.110 mlU/mL (0.270-4.200) 03/27/16 12:19
[2016-03-30] MEDS: LOPRESSOR PO SCH ×2 (10:00→22:15)
[2016-03-30] MEDS: OxyCONTIN PO SCH ×3 (10:00→22:09)
[2016-03-30] MEDS: NEURONTIN PO SCH (10:00)
[2016-03-30] MEDS: ASPIRIN PO SCH ×2 (10:00→22:15)
[2016-03-30] MEDS: PROTONIX PO SCH (10:00)
[2016-03-30] MEDS: SYNTHROID PO SCH (10:00)
--- NOTE | 2016-03-30 11:06 | Progress Note ---
Assessment and Plan Assessment and plan: Patient 75-year-old man with a history of hypothyroidism, hypertension, coronary artery disease and CABG who presented with fall and sustained left hip fracture status post repair 1. Mechanical fall 2. Closed fracture neck of the left femur status post surgery 3. Hypertension, chronic and stable 4. Coronary artery disease, seen by cardiology, stable 5. DVT prophylaxis: add sq lovenox, repeat cbc in am Rehab placement pending. History Interval history: Patient seen and examined. Follow up on left leg pain which is improved status post surgery. Overnight uneventful. No cp, sob, n/v or severe headaches. Imaging, old records, testing, labs, nursing notes reviewed. Hospitalist Physical - Physical exam Narrative exam: GEN: WDWN, NAD, AWAKE, ALERT, ORIENTATED 3 CVS: RRR, NORMAL S1S2 LUNGS/CHEST: CTA B, NORMAL CHEST EXPANSION B, GOOD AIR ENTRY B ABD: SOFT NTND, GBS, NO REBOUND OR GUARDING EXT/SKIN: NO SIGNIFICANT EDEMA OR RASH MSK: Limited range of motion left hip NEURO: CN 2-12 GROSSLY INTACT, NO NEW FOCAL DEFICITS PSY: CALM - Constitutional Vitals: Temp Pulse Resp BP Pulse Ox 98.6 F 67 20 121/58 93 03/30/16 07:15 03/30/16 07:15 03/30/16 07:15 03/30/16 07:15 03/30/16 04:00 General appearance: Present: no acute distress Results - Labs CBC & Chem 7: 03/27/16 12:19 03/27/16 12:19 Labs: Laboratory Last Values WBC 8.5 K/mm3 (4.5-11.0) 03/27/16 12:19 RBC 4.31 M/mm3 (3.65-5.03) 03/27/16 12:19 Hgb 13.2 gm/dl (11.8-15.2) 03/27/16 12:19 Hct 39.2 % (35.5-45.6) 03/27/16 12:19 MCV 91 fl (84-94) 03/27/16 12:19 MCH 31 pg (28-32) 03/27/16 12:19 MCHC 34 % (32-34) 03/27/16 12:19 RDW 13.6 % (13.2-15.2) 03/27/16 12:19 Plt Count 216 K/mm3 (140-440) 03/27/16 12:19 Lymph % (Auto) 12.4 % (13.4-35.0) L 03/27/16 12:19 [place] % (Auto) 8.5 % (0.0-7.3) H 03/27/16 12:19 Eos % (Auto) 2.5 % (0.0-4.3) 03/27/16 12:19 Baso % (Auto) 0.7 % (0.0-1.8) 03/27/16 12:19 Lymph # 1.1 K/mm3 (1.2-5.4) L 03/27/16 12:19 [place] # 0.7 K/mm3 (0.0-0.8) 03/27/16 12:19 Eos # 0.2 K/mm3 (0.0-0.4) 03/27/16 12:19 Baso # 0.1 K/mm3 (0.0-0.1) 03/27/16 12:19 Seg Neutrophils % 75.9 % (40.0-70.0) H 03/27/16 12:19 Seg Neutrophils # 6.5 K/mm3 (1.8-7.7) 03/27/16 12:19 PT 13.5 Sec. (12.2-14.9) 03/27/16 12:19 INR 1.04 (0.87-1.13) 03/27/16 12:19 APTT 26.0 Sec. (24.2-36.6) 03/27/16 12:19 Sodium 144 mmol/L (137-145) 03/27/16 12:19 Potassium 4.1 mmol/L (3.6-5.0) 03/27/16 12:19 Chloride 107.7 mmol/L (98-107) H 03/27/16 12:19 Carbon Dioxide 21 mmol/L (22-30) L 03/27/16 12:19 Anion Gap 19 mmol/L 03/27/16 12:19 BUN 16 mg/dL (9-20) 03/27/16 12:19 Creatinine 0.9 mg/dL (0.8-1.5) 03/27/16 12:19 Estimated GFR > 60 ml/min 03/27/16 12:19 BUN/Creatinine Ratio 17.77 % 03/27/16 12:19 Glucose 141 mg/dL (75-100) H 03/27/16 12: Calcium 8.6 mg/dL (8.4-10.2) 03/27/16 12: TSH 1.110 mlU/mL (0.270-4.200) 03/27/16 12:19
[2016-03-30] MEDS ORDERED: LOVENOX SUB-Q SCH (22:00)
[2016-03-31 05:38] LABS: Hematocrit 30.1 % (35.5-45.6); Hemoglobin 10.3 gm/dl (11.8-15.2); Mean Corpuscular HGB Conc 34 % (32-34); Mean Corpuscular Hemoglobin 31 pg (28-32); Mean Corpuscular Volume 91 fl (84-94); Platelet Count 188 K/mm3 (140-440); Red Cell Distribution Width 13.6 % (13.2-15.2); White Blood Count 8.6 K/mm3 (4.5-11.0)
[2016-03-31 09:18] VITALS: BP 114/57
[2016-03-31 09:31] LABS: Hematocrit 31.7 % (35.5-45.6)
[2016-03-31] MEDS: ASPIRIN PO SCH (09:56)
[2016-03-31] MEDS: NEURONTIN PO SCH (09:58)
[2016-03-31] MEDS: OxyCONTIN PO SCH (09:58)
[2016-03-31] MEDS: SYNTHROID PO SCH (09:59)
[2016-03-31] MEDS: PROTONIX PO SCH (10:00)
[2016-03-31] MEDS: LOPRESSOR PO SCH (10:00)
--- NOTE | 2016-03-31 11:01 | Progress Note ---
Assessment and Plan Assessment and plan: Patient is a 75-year-old man with a history of hypothyroidism, hypertension, coronary artery disease and CABG who presented with fall and sustained left hip fracture status post repair 1. Mechanical fall with fracture s/p repair 2. Closed fracture neck of the left femur status post surgery 3. Hypertension, chronic and stable 4. Coronary artery disease, seen by cardiology, stable 5. DVT prophylaxis: stopped lovenox because h/h dropped, levels repeat and h/h actually increased, so the drop was most likely dilutional +/-blood loss, so i stopped the IVF and restarted sq heparin for am. Rehab placement pending. History Interval history: Patient seen and examined. Follow up on left leg pain which is improved status post surgery. Overnight uneventful. No cp, sob, n/v or severe headaches. Imaging, old records, testing, labs, nursing notes reviewed. Hospitalist Physical - Physical exam Narrative exam: GEN: WDWN, NAD, AWAKE, ALERT, ORIENTATED 3 CVS: RRR, NORMAL S1S2 LUNGS/CHEST: CTA B, NORMAL CHEST EXPANSION B, GOOD AIR ENTRY B ABD: SOFT NTND, GBS, NO REBOUND OR GUARDING EXT/SKIN: NO SIGNIFICANT EDEMA OR RASH MSK: Limited range of motion left hip NEURO: CN 2-12 GROSSLY INTACT, NO NEW FOCAL DEFICITS PSY: CALM - Constitutional Vitals: Temp Pulse Resp BP Pulse Ox 97.9 F 60 16 114/57 100 03/31/16 08:00 03/31/16 10:00 03/31/16 08:00 03/31/16 10:00 03/31/16 08:00 General appearance: Present: no acute distress Results - Labs CBC & Chem 7: 03/31/16 09:19 03/27/16 12:19 Labs: Laboratory Last Values WBC 8.6 K/mm3 (4.5-11.0) 03/31/16 04:59 RBC 3.30 M/mm3 (3.65-5.03) L 03/31/16 04:59 Hgb 11.0 gm/dl (11.8-15.2) L 03/31/16 09:19 Hct 31.7 % (35.5-45.6) L 03/31/16 09:19 MCV 91 fl (84-94) 03/31/16 04:59 MCH 31 pg (28-32) 03/31/16 04:59 MCHC 34 % (32-34) 03/31/16 04:59 RDW 13.6 % (13.2-15.2) 03/31/16 04:59 Plt Count 188 K/mm3 (140-440) 03/31/16 04:59 Lymph % (Auto) 12.4 % (13.4-35.0) L 03/27/16 12:19 [place] % (Auto) 8.5 % (0.0-7.3) H 03/27/16 12:19 Eos % (Auto) 2.5 % (0.0-4.3) 03/27/16 12:19 Baso % (Auto) 0.7 % (0.0-1.8) 03/27/16 12:19 Lymph # 1.1 K/mm3 (1.2-5.4) L 03/27/16 12:19 [place] # 0.7 K/mm3 (0.0-0.8) 03/27/16 12:19 Eos # 0.2 K/mm3 (0.0-0.4) 03/27/16 12:19 Baso # 0.1 K/mm3 (0.0-0.1) 03/27/16 12:19 Seg Neutrophils % 75.9 % (40.0-70.0) H 03/27/16 12:19 Seg Neutrophils # 6.5 K/mm3 (1.8-7.7) 03/27/16 12:19 PT 13.5 Sec. (12.2-14.9) 03/27/16 12:19 INR 1.04 (0.87-1.13) 03/27/16 12:19 APTT 26.0 Sec. (24.2-36.6) 03/27/16 12:19 Sodium 144 mmol/L (137-145) 03/27/16 12:19 Potassium 4.1 mmol/L (3.6-5.0) 03/27/16 12:19 Chloride 107.7 mmol/L (98-107) H 03/27/16 12:19 Carbon Dioxide 21 mmol/L (22-30) L 03/27/16 12:19 Anion Gap 19 mmol/L 03/27/16 12:19 BUN 16 mg/dL (9-20) 03/27/16 12:19 Creatinine 0.9 mg/dL (0.8-1.5) 03/27/16 12:19 Estimated GFR > 60 ml/min 03/27/16 12:19 BUN/Creatinine Ratio 17.77 % 03/27/16 12:19 Glucose 141 mg/dL (75-100) H 03/27/16 12:19 Calcium 8.6 mg/dL (8.4-10.2) 03/27/16 12:19 TSH 1.110 mlU/mL (0.270-4.200) 03/27/16 12:19
--- NOTE | 2016-03-31 12:45 | Progress Note ---
[id number] Status: Acute (2) Left femoral shaft fracture Current Visit: Yes Status: Acute Qualifiers: Encounter type: initial encounter Fracture type: closed Fracture morphology: transverse Fracture alignment: displaced Qualified Code(s): S72.322A - Displaced transverse fracture of shaft of left femur, initial encounter for closed fracture Plan to address problem: Continue with rehabilitation program, wound care, due to prophylaxis. He would like to be discharged home, patient may be discharged to home with outpatient rehabilitation, home health care,DMEs for home use. We'll see him back in the office for followup. Home care discussed with patient and family. Subjective Date of service: 03/31/16 Principal diagnosis: pre-op cardiac evaluation Interval history: status post hip fracture fixation, no complaints. Out of bed, able to bear weight partially. Objective Vital signs: Vital Signs - 12hr 03/31/16 03/31/16 08:00 10:00 Temperature 97.9 F Pulse Rate 60 Pulse Rate [ 60 From Monitor] Respiratory 16 Rate Blood Pressure 114/57 Blood Pressure 114/57 [Left Arm] O2 Sat by Pulse 100 Oximetry - Labs CBC & BMP: 03/31/16 09:19 03/27/16 12:19 Labs: Abnormal lab results 03/31/16 03/31/16 Range/Units 04:59 09:19 RBC 3.30 L (3.65-5.03) M/mm3 Hgb 10.3 L 11.0 L (11.8-15.2) gm/dl Hct 30.1 L 31.7 L (35.5-45.6) %
--- NOTE | 2016-03-31 15:55 | Consultation ---
History of Present Illness - Reason for Consult Consult date: 03/31/16 Evaluate for Acute IRU - History of Present Illness 75 y.o. male admitted following fall at work; pt reports being unable to get off of the ground. Pt found to have a left displaced subtrochanteric femur fracture; s/p ORIF on 03/28/2016. Consult requested for post-acute placement recommendations. Past History Past Medical History: CAD, hyperlipidemia, hypothyroidism, other (hx. of prostate CA) Past Surgical History: CABG (double bypass), Other (RT shoulder surgery) Social history: , lives with family, full code. denies: smoking ( stopped 10 years ago), alcohol abuse Family history: hypertension Medications and Allergies Allergies Allergy/AdvReac Type Severity Reaction Status Date / Time No Known Allergies Allergy Unverified 03/27/16 11:44 Home Medications Medication Instructions Recorded Confirmed Last Taken Type Aspirin [Aspirin BABY CHEW TAB] 81 mg PO QDAY 03/27/16 03/27/16 Unknown History AtorvaSTATin [Lipitor] 20 mg PO QHS 03/27/16 03/27/16 03/26/16 History Gabapentin [Neurontin] 300 mg PO DAILY 03/27/16 03/27/16 Unknown History Levothyroxine [Synthroid] 125 mcg PO QAM 03/27/16 03/27/16 03/27/16 History Metoprolol Tartrate [Lopressor] 25 mg PO BID 03/27/16 03/27/16 Unknown History Multivit-Min/FA/Lycopen/Lutein 1 each PO DAILY 03/27/16 03/27/16 Unknown History [Centrum Silver Tablet] Omeprazole 20 mg PO DAILY 03/27/16 03/27/16 Unknown History Active Meds: Active Medications Acetaminophen (Tylenol) 650 mg PO Q4H PRN PRN Reason: Pain MILD(1-3)/Fever >100.5/PAUL Acetaminophen/Hydrocodone Bitart ([place] 5/325) 1 each PO Q6H PRN PRN Reason: Pain, Moderate (4-6) Aspirin (Aspirin) 325 mg PO BID [facility] Last Admin: 03/31/16 09:56 Dose: 325 mg Atorvastatin Calcium (Lipitor) 20 mg PO QHS [facility] Last Admin: 03/30/16 22:15 Dose: 20 mg Bisacodyl (Dulcolax) 10 mg DE QDAY PRN PRN Reason: Constipation unrelieved by MOM Celecoxib (Celebrex) 100 mg PO BID [facility] Last Admin: 03/31/16 09:56 Dose: 100 mg Gabapentin (Neurontin) 300 mg PO DAILY [facility] Last Admin: 03/31/16 09:58 Dose: 300 mg Heparin Sodium (Porcine) (Heparin) 5,000 unit SUB-Q Q12HR [facility] Levothyroxine Sodium (Synthroid) 125 mcg PO QAM [facility] Last Admin: 03/31/16 09:59 Dose: 125 mcg Magnesium Hydroxide (Milk Of Magnesia) 30 ml PO Q4H PRN PRN Reason: Constipation Metoprolol Tartrate (Lopressor) 25 mg PO BID [facility] Last Admin: 03/31/16 10:00 Dose: 25 mg Morphine Sulfate (Morphine) 2 mg IV Q4H PRN PRN Reason: Pain, Moderate (4-6) Last Admin: 03/28/16 08:30 Dose: 2 mg Morphine Sulfate (Morphine Handkerchief Sample Clerk 30mg/30ml) 0 mg IV DIRECT [facility] PRN Reason: Protocol Last Admin: 03/28/16 15:15 Dose: 1 cartstart Naloxone HCl (Narcan 0.4 Mg/1 Ml) 0.1 mg IV Q2MIN PRN PRN Reason: Res Rate </= 8 or 02 SAT < 92% Ondansetron HCl (Zofran) 4 mg IV Q8H PRN PRN Reason: Nausea And Vomiting Oxycodone HCl (Oxycontin) 10 mg PO Q12HR [facility] Last Admin: 03/31/16 09:58 Dose: 10 mg Oxycodone/Acetaminophen (Percocet 5/325) 1 tab PO Q6H PRN PRN Reason: Pain, Moderate (4-6) Pantoprazole Sodium (Protonix) 20 mg PO QDAY [facility] Last Admin: 03/31/16 10:00 Dose: 20 mg Promethazine HCl (Phenergan) 25 mg DE Q6H PRN PRN Reason: Nausea And Vomiting Sodium Chloride (Sodium Chloride Flush Syringe 10 Ml) 10 ml IV PRN PRN PRN Reason: LINE FLUSH Zolpidem Tartrate (Ambien) 5 mg PO QHS PRN PRN Reason: Sleep Review of Systems All systems: negative Cardiovascular: no chest pain, no lightheadedness Gastrointestinal: no nausea, no vomiting, no constipation Genitourinary Male: no dysuria Musculoskeletal: gait dysfunction (post-op pain) Exam - Constitutional Vitals: Vital Signs - 12hr 03/31/16 03/31/16 08:00 10:00 Temperature 97.9 F Pulse Rate 60 Pulse Rate [ 60 From Monitor] Respiratory 16 Rate Blood Pressure 114/57 Blood Pressure 114/57 [Left Arm] O2 Sat by Pulse 100 Oximetry General appearance: no acute distress - EENT Eyes: EOM intact ENT: hearing intact - Neck Neck: supple, normal ROM - Respiratory Respiratory effort: normal - Gastrointestinal General gastrointestinal: Present: non-distended - Musculoskeletal Musculoskeletal: right sided weakness (RLE) - Neurologic Neurologic: CNII-XII intact - Psychiatric Psychiatric: appropriate mood/affect, intact judgment & insight, memory intact, cooperative - Allied health notes Allied health notes reviewed: PT (supervision to Alexx for ADLs) FIMS assesment as documented by PT/OT/ST: Locomotion- walk/wheelchair Ambulation Distance 0 - Labs CBC & Chem 7: 03/31/16 09:19 03/27/16 12:19 Labs: Laboratory Results - last 72 hr 03/31/16 03/31/16 04:59 09:19 WBC 8.6 RBC 3.30 L Hgb 10.3 L 11.0 L Hct 30.1 L 31.7 L MCV 91 MCH 31 MCHC 34 RDW 13.6 Plt Count 188 - Imaging and cardiology Other: report reviewed (hip xray) Assessment and Plan Patient was assessed and evaluated for Acute Inpatient Rehab Unit. 75 y.o. male s/p left hip fracture following a fall; s/p ORIF, gait dysfunction. Rehab options discussed with pt and . Both pt and requesting d/c home with home health. Equipment pending per recommendations. Pt is progressing well with therapies; educated on need to transition to outpt therapy when appropriate. Will sign off; thank you for consultation. - Patient Problems (1) Subtrochanteric fracture of left femur Current Visit: Yes Status: Acute Qualifiers: Encounter type: initial encounter Fracture type: closed Qualified Code(s) : S72.22XA - Displaced subtrochanteric fracture of left femur, initial encounter for closed fracture (2) Unsteady gait Current Visit: Yes Status: Acute
--- NOTE | 2016-03-31 16:46 | Discharge Summary ---
Providers - Providers Date of Admission: 03/27/16 13:18 Date of discharge: 03/31/16 Attending physician: IMANI SWAIN 03/28/16 12:26 Physical Therapy Evaluation and Treat [CONS] Routine Comment: Reason For Exam: fracture hip Mode of Transport?: Wheelchair Weight bearing status?: Full wt bearing Assistive devices?: Yes If so list: Walker 03/31/16 10:10 Consult Acute Rehabilitation [CONS] Routine Consulting Provider: PHYLLIS MCQUEEN Reason For Exam: s/p hip fracture/repair Primary care physician: [employer] ANALYST Hospitalization Condition: Stable Hospital course: Patient is a 75-year-old man with a history of hypothyroidism, hypertension, coronary artery disease and CABG who presented with fall and sustained left hip fracture status post repair 1. Mechanical fall with fracture s/p repair 2. Closed fracture neck of the left femur status post surgery 3. Hypertension, chronic and stable 4. Coronary artery disease, seen by cardiology, stable 5. DVT prophylaxis: stopped lovenox because h/h dropped, levels repeat and h/h actually increased, so the drop was most likely dilutional +/-blood loss, so i stopped the IVF and restarted sq heparin for am. Rehab placement pending==> pt declined inpt rehab, ortho has cleared for d/c time of d/c 32 minutes Disposition: DC/TX HOME UNDER HOME HEALTH Core Measure Documentation - Palliative Care Palliative Care/ Comfort Measures: Not Applicable - Core Measures Any of the following diagnoses?: none - VTE Discharge Requirements Deep Vein Thrombosis/Pulmonary Embolism Present on Admission: No Has pt received <5 days of overlap therapy or INR<2.0: No Anticoagulant overlap therapy prescribed at discharge: No Contraindication No Overlap Therapy order at DC: Not Indicated Exam - Physical Exam Narrative exam: GEN: WDWN, NAD, AWAKE, ALERT, ORIENTATED 3 CVS: RRR, NORMAL S1S2 LUNGS/CHEST: CTA B, NORMAL CHEST EXPANSION B, GOOD AIR ENTRY B ABD: SOFT NTND, GBS, NO REBOUND OR GUARDING EXT/SKIN: NO SIGNIFICANT EDEMA OR RASH MSK: Limited range of motion left hip NEURO: CN 2-12 GROSSLY INTACT, NO NEW FOCAL DEFICITS PSY: CALM - Constitutional Vitals: Temp Pulse Resp BP Pulse Ox 97.9 F 60 16 114/57 100 03/31/16 08:00 03/31/16 10:00 03/31/16 08:00 03/31/16 10:00 03/31/16 08:00 Plan Activity: up only with assistance, fall precautions Diet: low salt Follow up with: PRIMARY CARE,MD [Primary Care Provider] - 7 Days Prescriptions: Acetaminophen [Acetaminophen TAB] 650 mg PO Q4H PRN #30 tablet PRN Reason: Pain MILD(1-3)/Fever >100.5/PAUL oxyCODONE /ACETAMINOPHEN [Percocet 5/325 mg] 1 tab PO Q6H PRN #30 tablet PRN Reason: Pain , Severe (7-10)
[2016-04-01] MEDS ORDERED: HEPARIN SUB-Q SCH (10:00)
== END 2016-03-31 17:24 | disposition home health service (06) | DRG 481 ==
LOC: ED 11:32 → 3A 13:18 → 2B-SURG 14:00
PROVIDERS: ADMIT Hospitalist; ATTEND Internal Medicine
PROC: 0QS706Z Reposition Left Upper Femur with Intramedullary Internal Fixation Device, Open Approach (ICD-10-PCS; principal; 2016-03-28)
DX: S72.22XA Displaced subtrochanteric fracture of left femur, initial encounter for closed fracture (principal); R71.0 Precipitous drop in hematocrit; I10 Essential (primary) hypertension; I25.10 Atherosclerotic heart disease of native coronary artery without angina pectoris; E03.9 Hypothyroidism, unspecified; E78.5 Hyperlipidemia, unspecified; W19.XXXA Unspecified fall, initial encounter; I45.10 Unspecified right bundle-branch block; R00.1 Bradycardia, unspecified; K21.9 Gastro-esophageal reflux disease without esophagitis; I34.0 Nonrheumatic mitral (valve) insufficiency; R26.81 Unsteadiness on feet; Z95.1 Presence of aortocoronary bypass graft; Z98.890 Other specified postprocedural states; Z87.891 Personal history of nicotine dependence; Z79.82 Long term (current) use of aspirin; Z79.899 Other long term (current) drug therapy; Y93.89 Activity, other specified; Y92.89 Other specified places as the place of occurrence of the external cause; Z85.46 Personal history of malignant neoplasm of prostate; Z82.49 Family history of ischemic heart disease and other diseases of the circulatory system
CPT/HCPCS: 36415; 71010; 80048; 84443; 85014; 85018; 85025; 85027; 85610; 85730; 93005; 93010; 93306; 96361; 96374; 96375; A9270-GY; C1713; C1769; G8978-GP; G8979-GP; J0690; J1650; J2250; J2270; J2370; J2405; J2704; J3010; J7030; J7042; J7120